=== PATIENT | female | born 1995 | race American Indian/Alaskan Native ===

== ENCOUNTER 2020-07-06 00:35 | Emergency (ER) | payer OTHER ==
[2020-07-06 00:43] VITALS: BMI 27.4
[2020-07-06] MEDS ORDERED: ACETAMINOPHEN 500 MG TABLET (FP) PO ONE (00:47)
[2020-07-06] MEDS ORDERED: CIPROFLOXACIN 500 MG TABLET (RESTRICTED TO ID) PO ONE (00:50)
[2020-07-06] MEDS ORDERED: CIPROFLOXACIN 250 MG TABLET (RESTRICTED TO ID) PO ONE (00:52)
[2020-07-06] MEDS ORDERED: ACETAMINOPHEN 500 MG TABLET (FP) ONE (00:52)
[2020-07-06 01:44] LABS: EPI CELLS 5 /uL (0-25.1); HYALINE CASTS 1 /uL (0-3.1); URINE APPEARANCE CLEAR; URINE BACTERIA >9,000 /uL (0-1359); URINE BILIRUBIN NEGATIVE (NEGATIVE); URINE COLOR YELLOW; URINE GLUCOSE (UA) NEGATIVE (NEGATIVE); URINE KETONE NEGATIVE (NEGATIVE); URINE LEUK ESTERASE 2+ (NEGATIVE); URINE NITRITE POSITIVE (NEGATIVE); URINE PROTEIN TRACE (NEGATIVE); URINE RBC 8 /uL (0-23.9); URINE UROBILINOGEN 0.2 mg/dL (0.2-1.0); URINE WBC 443 /uL (0-25.8)
[2020-07-06 02:08] VITALS: BP 109/65; PULSE 104; TEMP 99.4
== END 2020-07-06 02:12 | disposition home or self-care (01) ==
LOC: FER 00:35
DX: R50.9 Fever, unspecified (principal); N39.0 Urinary tract infection, site not specified; N10 Acute pyelonephritis
CPT/HCPCS: 81003; 84703; 87086; 87186; 99283-25